=== PATIENT | male | born 1990 | race American Indian/Alaskan Native ===

== ENCOUNTER 2016-12-11 22:41 | Emergency (ER) | payer OTHER ==
[2016-12-12 07:28] VITALS: BP 133/100
[2016-12-12] MEDS ORDERED: MOTRIN PO ONE (08:06)
[2016-12-12] MEDS ORDERED: LIDOCAINE VISCOUS 2% PO ONE (08:06)
--- NOTE | 2016-12-12 08:08 | Emergency Department Report ---
ED General Adult HPI - General Chief complaint: Sore Throat Stated complaint: SORE THROAT, ASTHMA Time Seen by Provider: 12/12/16 07:36 Source: patient, RN notes reviewed Mode of arrival: Ambulatory Limitations: No Limitations - History of Present Illness Initial comments: This is a 26-year-old male who is unknown to this provider. He endorses a past medical history of asthma. He presents to the ER with throat pain, cough, shortness of breath. He thinks that his asthma is "acting up." There is no leg pain or leg swelling, and there are no DVT or pulmonary embolus risk factors. The patient has no chest pain. The throat pain is constant, and worsens when he swallows. The patient reports that he is sexually active with male partners, intermittently uses barrier protection. There is no anal pain, rectal pain, and there are no irritative or obstructive urinary symptoms. -: Gradual Location: mouth Severity scale (0 -10): 0 Quality: aching Consistency: constant Improves with: rest Worsens with: eating Associated Symptoms: denies other symptoms, shortness of breath - Related Data Previous Rx's Medication Instructions Recorded Last Taken Type Acetaminophen [Tylenol Arthritis] 650 mg PO Q6HR PRN #30 tablet.er 12/12/16 Unknown Rx Albuterol Sulfate [Proair 90 mcg IH Q4HR PRN #2 aer.pow.ba 12/12/16 Unknown Rx Respiclick] Ibuprofen [Motrin] 600 mg PO Q8H PRN #30 tablet 12/12/16 Unknown Rx Allergies Allergy/AdvReac Type Severity Reaction Status Date / Time No Known Allergies Allergy Unverified 12/11/16 22:50 ED Review of Systems ROS: Stated complaint: SORE THROAT, ASTHMA Other details as noted in HPI Constitutional: denies: fever Eyes: denies: vision change ENT: throat pain, congestion Respiratory: shortness of breath, wheezing Cardiovascular: denies: chest pain Gastrointestinal: denies: abdominal pain Genitourinary: denies: urgency, dysuria, testicular pain Musculoskeletal: denies: back pain Skin: denies: lesions Neurological: denies: weakness Psychiatric: denies: anxiety ED Past Medical Hx - Past Medical History Previous Medical History?: Yes Hx Asthma: Yes - Surgical History Past Surgical History?: Yes Additional Surgical History: hernia - Social History Smoking Status: Never Smoker Substance Use Type: Alcohol - Medications Home Medications: Home Medications Medication Instructions Recorded Confirmed Last Taken Type Acetaminophen [Tylenol Arthritis] 650 mg PO Q6HR PRN #30 tablet.er 12/12/16 Unknown Rx Albuterol Sulfate [Proair 90 mcg IH Q4HR PRN #2 aer.pow.ba 12/12/16 Unknown Rx Respiclick] Ibuprofen [Motrin] 600 mg PO Q8H PRN #30 tablet 12/12/16 Unknown Rx ED Physical Exam - General Limitations: No Limitations General appearance: alert, in no apparent distress - Head Head exam: Present: atraumatic, normocephalic - Eye Eye exam: Present: normal appearance, PERRL, EOMI. Absent: nystagmus - ENT ENT exam: Present: normal exam, normal orophraynx, mucous membranes moist, TM's normal bilaterally, normal external ear exam, other (patient is speaking in full sentences. There is no stridor or dysphonia. There is no pharyngeal exudates.) - Neck Neck exam: Present: normal inspection, tenderness, full ROM, lymphadenopathy ( anterior cervical adenopathy). Absent: meningismus - Respiratory Respiratory exam: Present: normal lung sounds bilaterally. Absent: respiratory distress, wheezes, rales, rhonchi, stridor, chest wall tenderness, accessory muscle use, decreased breath sounds, prolonged expiratory - Cardiovascular Cardiovascular Exam: Present: regular rate, normal rhythm, normal heart sounds. Absent: bradycardia, tachycardia, irregular rhythm, systolic murmur, diastolic murmur, rubs, gallop - GI/Abdominal GI/Abdominal exam: Present: soft, normal bowel sounds. Absent: distended, tenderness, guarding, rebound, rigid, pulsatile mass - Rectal Rectal exam: Present: deferred - Extremities Exam Extremities exam: Present: normal inspection, full ROM, normal capillary refill. Absent: pedal edema, joint swelling, calf tenderness - Back Exam Back exam: Present: normal inspection, full ROM. Absent: tenderness, CVA tenderness (R), CVA tenderness (L), muscle spasm, paraspinal tenderness, vertebral tenderness - Neurological Exam Neurological exam: Present: alert, oriented X3, normal gait, other (Extraocular movements intact. Tongue midline. No facial droop. Facial sensation intact to light touch in the V1, V2, V3 distribution bilaterally. 5 and 5 strength in 4 extremities.. Sensation is intact to light touch in 4 extremities.). Absent : motor sensory deficit - Psychiatric Psychiatric exam: Present: normal affect, normal mood - Skin Skin exam: Present: warm, dry, intact, normal color. Absent: rash ED Course Vital Signs 12/11/16 12/11/16 12/12/16 22:44 22:46 02:50 Temperature 98.3 F 98.3 F 98.1 F Pulse Rate 92 H 94 H 84 Respiratory 18 17 Rate Blood Pressure 147/95 147/95 129/90 Blood Pressure [Right] O2 Sat by Pulse 98 98 99 Oximetry 12/12/16 07:10 Temperature 98.1 F Pulse Rate 78 Respiratory 16 Rate Blood Pressure Blood Pressure 133/100 [Right] O2 Sat by Pulse 97 Oximetry - Reevaluation(s) Reevaluation #1: 12/12/16 08:49 No active wheezing at this time. Patient requests a when necessary albuterol prescription. No pulmonary embolus or DVT risk factors, low risk by well's criteria, perc negative ED Medical Decision Making - Lab Data Vital Signs 12/11/16 12/11/16 12/12/16 22:44 22:46 02:50 Temperature 98.3 F 98.3 F 98.1 F Pulse Rate 92 H 94 H 84 Respiratory 18 17 Rate Blood Pressure 147/95 147/95 129/90 Blood Pressure [Right] O2 Sat by Pulse 98 98 99 Oximetry 12/12/16 07:10 Temperature 98.1 F Pulse Rate 78 Respiratory 16 Rate Blood Pressure Blood Pressure 133/100 [Right] O2 Sat by Pulse 97 Oximetry - Medical Decision Making Differential diagnosis: Pharyngitis, viral syndrome, gonococcal pharyngitis Assessment and plan: 26-year-old male with sore throat, cough, and anterior cervical adenopathy, no fever, has a Centor score of 1, strep screen negative, no obvious exudates on exam. Patient is sexually active with male partner, however given lack of exudates and purulent discharge on the throat, I think gonococcal pharyngitis is unlikely. Cultures are sent, patient treated symptomatically. No wheezing noted on exam, no focal pulmonary findings, therefore an x-ray is not indicated at this time. He is afebrile, with reassuring vital signs, protecting his airway, and clinically appears well. He is treated symptomatically, and will be discharged with symptomatic therapy. Critical care attestation.: If time is entered above; I have spent that time in minutes in the direct care of this critically ill patient, excluding procedure time. ED Disposition Clinical Impression: Pharyngitis Disposition: DC-01 TO HOME OR SELFCARE Is pt being admited?: No Does the pt Need Aspirin: No Condition: Stable Instructions: Pharyngitis (ED) Additional Instructions: Take the medications as needed/directed. Follow-up with a primary care doctor within the next month. Cultures were sent today, results will be available in the next 3-5 days. Have a primary care doctor contact the medical records department to obtain culture results. Return to the ER right away with new pain , worsened pain, migration of pain, fevers, chills, lethargy, irritability, projectile vomiting, change in mental status, inability to tolerate liquid feeds. Make certain to use condoms/barrier protection when engaging in sexual intimacy. Prescriptions: Acetaminophen [Tylenol Arthritis] 650 mg PO Q6HR PRN #30 tablet.er PRN Reason: Pain Albuterol Sulfate [Proair Respiclick] 90 mcg IH Q4HR PRN #2 aer.pow.ba PRN Reason: Wheezing Ibuprofen [Motrin] 600 mg PO Q8H PRN #30 tablet PRN Reason: Pain Referrals: PRIMARY CARE, [Primary Care Provider] - 3-5 Days MARGAUX DOMINIQUE MD [Staff Physician] - 3-5 Days [facility] [Provider Group] - 3-5 Days
== END 2016-12-12 09:13 | disposition home or self-care (01) ==
LOC: ED 22:41
DX: J02.9 Acute pharyngitis, unspecified (principal); J45.909 Unspecified asthma, uncomplicated
CPT/HCPCS: 87116; 87430; 99282

== ENCOUNTER 2017-03-30 19:18 | Emergency (ER) | payer SELFPAY ==
[2017-03-30 19:57] VITALS: BP 150/97
[2017-03-31] MEDS ORDERED: MOTRIN PO ONE (01:43)
[2017-03-31] MEDS ORDERED: TESSALON PERLES PO ONE (01:43)
--- NOTE | 2017-03-31 02:47 | XRay Report ---
FINAL REPORT EXAM: XR CHEST ROUTINE 2V HISTORY: Cough. TECHNIQUE: Frontal and lateral radiographs of the chest were obtained. No prior studies are available for comparison. FINDINGS: The cardiac silhouette and mediastinum are within normal limits. The lungs are clear bilaterally, without focal infiltrate or effusion. There is no pneumothorax. There is a mild dextroscoliosis in the mid to lower thoracic spine. IMPRESSION: No focal infiltrate or effusion.
--- NOTE | 2017-03-31 04:04 | Emergency Department Report ---
ED ENT HPI - General Chief complaint: Upper Respiratory Infection Stated complaint: FLU LIKE SYMPTOMS Time Seen by Provider: 03/31/17 03:54 Source: patient Mode of arrival: Ambulatory Limitations: No Limitations - History of Present Illness Initial comments: This is a 27-year-old male nontoxic, well nourished in appearance, no acute signs of distress presents to the ED with c/o of sore throat 2 days. Patient stated at the sore throat developed and then he started to have decreased appetite and slight body aches with fever and chills. Patient denies any recent travels, long car rides, or recent hospital stays. Patient denies cough , calf pain or calf tenderness. Patient denies drooling or hoarseness. Denies any hemoptysis. Patient denies chest pain, shortness of breath, fever, chills, nausea, vomiting, headache, stiff neck, numbness, tingling. Patient denies any allergies. PMH includes asthma. MD complaint: sore throat -: days(s) Location: throat Severity: mild Severity scale (0 -10): 8 Quality: aching Consistency: constant Improves with: none Worsens with: swallowing Associated Symptoms: fever, pain with swallowing, sore throat. denies: cough, gum swelling, toothache, tinnitus, hearing loss, discharge from ear, rhinorrhea - Related Data Previous Rx's Medication Instructions Recorded Last Taken Type Acetaminophen [Tylenol Arthritis] 650 mg PO Q6HR PRN #30 tablet.er 12/12/16 Unknown Rx Albuterol Sulfate [Proair 90 mcg IH Q4HR PRN #2 aer.pow.ba 12/12/16 Unknown Rx Respiclick] Ibuprofen [Motrin] 600 mg PO Q8H PRN #30 tablet 12/12/16 Unknown Rx Amoxicillin/K Clav Tab [Augmentin 1 tab PO Q12HR #20 tab 03/31/17 Unknown Rx 875 mg] Ibuprofen [Motrin] 600 mg PO Q8H PRN #30 tablet 03/31/17 Unknown Rx Nystas/Diphen/Xyl Visc/Mylanta 30 ml MM Q4H PRN 10 Days ml 03/31/17 Unknown Rx [Magic Mouthwash] Allergies Allergy/AdvReac Type Severity Reaction Status Date / Time No Known Allergies Allergy Unverified 12/11/16 22:50 ED Dental HPI - General Chief complaint: Upper Respiratory Infection Stated complaint: FLU LIKE SYMPTOMS Time Seen by Provider: 03/31/17 03:54 Source: patient Mode of arrival: Ambulatory Limitations: No Limitations - Related Data Previous Rx's Medication Instructions Recorded Last Taken Type Acetaminophen [Tylenol Arthritis] 650 mg PO Q6HR PRN #30 tablet.er 12/12/16 Unknown Rx Albuterol Sulfate [Proair 90 mcg IH Q4HR PRN #2 aer.pow.ba 12/12/16 Unknown Rx Respiclick] Ibuprofen [Motrin] 600 mg PO Q8H PRN #30 tablet 12/12/16 Unknown Rx Amoxicillin/K Clav Tab [Augmentin 1 tab PO Q12HR #20 tab 03/31/17 Unknown Rx 875 mg] Ibuprofen [Motrin] 600 mg PO Q8H PRN #30 tablet 03/31/17 Unknown Rx Nystas/Diphen/Xyl Visc/Mylanta 30 ml MM Q4H PRN 10 Days ml 03/31/17 Unknown Rx [Magic Mouthwash] Allergies Allergy/AdvReac Type Severity Reaction Status Date / Time No Known Allergies Allergy Unverified 12/11/16 22:50 ED Review of Systems ROS: Stated complaint: FLU LIKE SYMPTOMS Other details as noted in HPI Constitutional: denies: chills, fever Eyes: denies: eye pain, eye discharge, vision change ENT: throat pain. denies: ear pain Respiratory: denies: cough, shortness of breath, wheezing Cardiovascular: denies: chest pain, palpitations Endocrine: no symptoms reported Gastrointestinal: denies: abdominal pain, nausea, diarrhea Genitourinary: denies: urgency, dysuria Musculoskeletal: denies: back pain, joint swelling, arthralgia Skin: denies: rash, lesions Neurological: denies: headache, weakness, paresthesias Psychiatric: denies: anxiety, depression Hematological/Lymphatic: denies: easy bleeding, easy bruising ED Past Medical Hx - Past Medical History Hx Asthma: Yes - Surgical History Additional Surgical History: hernia - Social History Smoking Status: Never Smoker Substance Use Type: Alcohol - Medications Home Medications: Home Medications Medication Instructions Recorded Confirmed Last Taken Type Acetaminophen [Tylenol Arthritis] 650 mg PO Q6HR PRN #30 tablet.er 12/12/16 Unknown Rx Albuterol Sulfate [Proair 90 mcg IH Q4HR PRN #2 aer.pow.ba 12/12/16 Unknown Rx Respiclick] Ibuprofen [Motrin] 600 mg PO Q8H PRN #30 tablet 12/12/16 Unknown Rx Amoxicillin/K Clav Tab [Augmentin 1 tab PO Q12HR #20 tab 03/31/17 Unknown Rx 875 mg] Ibuprofen [Motrin] 600 mg PO Q8H PRN #30 tablet 03/31/17 Unknown Rx Nystas/Diphen/Xyl Visc/Mylanta 30 ml MM Q4H PRN 10 Days ml 03/31/17 Unknown Rx [Magic Mouthwash] ED Physical Exam - General Limitations: No Limitations General appearance: alert, in no apparent distress - Head Head exam: Present: atraumatic, normocephalic - Eye Eye exam: Present: normal appearance, PERRL, EOMI Pupils: Present: normal accommodation - ENT ENT exam: Present: mucous membranes moist, TM's normal bilaterally, normal external ear exam - Expanded ENT Exam Expanded Ear exam: Present: normal external inspection Mouth exam: Present: normal external inspection, tongue normal. Absent: drooling, trismus, muffled voice, tongue elevation, laceration Teeth exam: Present: normal inspection Throat exam: Positive: tonsillar erythema, tonsillomegaly (2+), tonsillar exudate, other (Uvula midline. No abscess or swelling noted. ). Negative: R peritonsillar mass, L peritonsillar mass - Neck Neck exam: Present: normal inspection, full ROM, lymphadenopathy (bilateral tonsilar). Absent: tenderness, meningismus, thyromegaly - Respiratory Respiratory exam: Present: normal lung sounds bilaterally. Absent: respiratory distress, wheezes, rales, rhonchi, stridor, chest wall tenderness, accessory muscle use, decreased breath sounds, prolonged expiratory - Cardiovascular Cardiovascular Exam: Present: regular rate, normal rhythm, normal heart sounds. Absent: irregular rhythm, systolic murmur, diastolic murmur, rubs, gallop - GI/Abdominal GI/Abdominal exam: Present: soft, normal bowel sounds. Absent: distended, tenderness, guarding, rebound, rigid, diminished bowel sounds - Rectal Rectal exam: Present: deferred - Extremities Exam Extremities exam: Present: normal inspection, full ROM, normal capillary refill. Absent: tenderness, pedal edema, joint swelling, calf tenderness - Back Exam Back exam: Present: normal inspection, full ROM. Absent: tenderness, CVA tenderness (R), CVA tenderness (L), muscle spasm, paraspinal tenderness, vertebral tenderness, rash noted - Neurological Exam Neurological exam: Present: alert, oriented X3, CN II-XII intact, normal gait, reflexes normal - Psychiatric Psychiatric exam: Present: normal affect, normal mood - Skin Skin exam: Present: warm, dry, intact, normal color. Absent: rash ED Course Vital Signs 03/30/17 19:54 Temperature 99.2 F Pulse Rate 110 H Respiratory 18 Rate Blood Pressure 150/97 O2 Sat by Pulse 98 Oximetry - Reevaluation(s) Reevaluation #1: 03/31/17 04:04 Patient is speaking in full sentences with no signs of distress noted. ED Medical Decision Making - Medical Decision Making This is a 27-year-old male that presents with tonsillitis with exudate. Patient is stable and was examined by me. Prior to my interview patient received a chest x-ray and dictated by radiologist with normal exam. Patient notified of x-ray results with no question or by the patient. Patient received Motrin and lidocaine viscous in the ED which patient stated his symptoms of sore throat is improving and is subsided. Vital signs stable prior to discharge. Patient is afebrile. Normal heart rate. I'll treat patient with augmentin at discharge. Patient was orally rehydrated in the ER and patient tolerated well with no signs of nasuea or vomiting. Patient was instructed Follow-up with a primary care doctor in 3-5 days or if symptoms worsen and continue return to emergency room as soon as possible. At time time of discharge, the patient does not seem toxic or ill in appearance. No acute signs of distress noted. Patient agrees to discharge treatment plan of care. No further questions noted by the patient. Critical care attestation.: If time is entered above; I have spent that time in minutes in the direct care of this critically ill patient, excluding procedure time. ED Disposition Clinical Impression: Tonsillitis with exudate Disposition: TO HOME OR SELFCARE Is pt being admited?: No Does the pt Need Aspirin: No Condition: Stable Instructions: Tonsillitis (ED), Amoxicillin/Clavulanate Potassium (By mouth), Ibuprofen (By mouth) Additional Instructions: Follow-up with a primary care doctor in 3-5 days or if symptoms worsen and continue return to emergency room as soon as possible. Increase rest, hydration, and take Motrin/Tylenol [id number] if fever presents. Prescriptions: Amoxicillin/K Clav Tab [Augmentin 875 mg] 1 tab PO Q12HR #20 tab Ibuprofen [Motrin] 600 mg PO Q8H PRN #30 tablet PRN Reason: Pain/Fever Nystas/Diphen/Xyl Visc/Mylanta [Magic Mouthwash] 30 ml MM Q4H PRN 10 Days ml PRN Reason: Sore Throat Referrals: DERECK MUÑOZ MD [Primary Care Provider] - 3-5 Days PRIMARY CARE, [Referring] - 3-5 Days [facility] [Outside] - 3-5 Days [facility] [Outside] - 3-5 Days Forms: Work/School Release Form(ED)
[2017-03-31] MEDS ORDERED: LIDOCAINE VISCOUS 2% MM NR (04:15)
== END 2017-03-31 05:05 | disposition home or self-care (01) ==
LOC: ED 19:18
DX: J03.90 Acute tonsillitis, unspecified (principal); J45.909 Unspecified asthma, uncomplicated
CPT/HCPCS: 71046; 87116; 87400; 87430

== ENCOUNTER 2021-08-17 16:28 | Emergency (ER) | payer SELFPAY ==
[2021-08-17 17:00] VITALS: BP 152/86
--- NOTE | 2021-08-18 10:05 | Electrocardiograph Report ---
[facility] Test Date: 2021-08-17 Test Time: 17:05:59 Pat Name: RAVIN NOE Department: Room: Gender: M Insulation Mechanic: MAHESH : 1990 Requested By: MELA MICHAELS Order Number: [id number] Reading MD: Noé Moses Measurements Intervals [place] Rate: 99 P: 68 AL: 156 QRS: 43 QRSD: 89 T: 66 QT: 331 QTc: 426 Interpretive Statements Sinus rhythm No previous ECG available for comparison Electronically Signed On 08-18-2021 10:04:40 EDT by Noé Moses
== END 2021-08-18 04:30 | disposition left against medical advice (07) ==
LOC: ED 16:28
DX: R00.2 Palpitations (principal); Z53.21 Procedure and treatment not carried out due to patient leaving prior to being seen by health care provider
CPT/HCPCS: 93005